=== PATIENT | female | born 1985 | race Two or more races ===

== ENCOUNTER 2017-07-06 13:18 | Emergency (ER) | payer SELFPAY ==
[2017-07-06 14:12] LABS: URINE HCG POC HCG NEGATIVE (Negative)
[2017-07-06 14:18] LABS: BILIRUBIN,URINE NEGATIVE (NEG); CLARITY,URINE CLEAR; COLOR,URINE YELLOW; GLUCOSE,URINE NEGATIVE (NEG); NITRITE,URINE NEGATIVE (NEG); PROTEIN,URINE NEGATIVE (NEG-TRACE)
[2017-07-06 14:26] LABS: RBC,URINE TNTC /HPF (0-2)
[2017-07-06 14:27] LABS: BACTERIA,URINE 0 /HPF (0-FEW); SQUAMOUS EPITHELIAL CELL,UR FEW /LPF
== END 2017-07-06 15:14 | disposition home or self-care (01) ==
LOC: ER 13:18
DX: R10.2 Pelvic and perineal pain (principal); T83.89XA Other specified complication of genitourinary prosthetic devices, implants and grafts, initial encounter; Y83.8 Other surgical procedures as the cause of abnormal reaction of the patient, or of later complication, without mention of misadventure at the time of the procedure; Y92.89 Other specified places as the place of occurrence of the external cause
CPT/HCPCS: 81001; 81025; 87086; 99284